=== PATIENT | male | born 1960 ===

== ENCOUNTER 2018-05-05 08:55 | Outpatient (CLI) | payer OTHER | END 2018-05-05 09:05 | disposition home or self-care (01) | LOC: LAB 08:55 | DX: R31.9 Hematuria, unspecified (principal) ==

== ENCOUNTER 2018-05-11 20:37 | Emergency (ER) | payer OTHER ==
[~2018-05-11] VITALS: Ht 170.2 cm; Wt 90.7 kg
[2018-05-11] MEDS ORDERED: TAMS0.4C PO (20:44)
[2018-05-11] MEDS ORDERED: VASOTEC10 MG (20:45)
[2018-05-11] MEDS ORDERED: FORTAMET1000 MG PO (20:45)
[2018-05-11] MEDS ORDERED: CRESTOR5 MG PO (20:45)
[2018-05-11] MEDS ORDERED: LANTUS SOL100 UNIT/1 (20:46)
== END 2018-05-11 22:38 | disposition home or self-care (01) ==
LOC: ER 20:37
DX: R31.0 Gross hematuria (principal)

== ENCOUNTER 2018-05-14 07:20 | Outpatient (CLI) | payer OTHER ==
[~2018-05-14 07:20] MED LIST: CRESTOR5 MG PO; FORTAMET1000 MG PO; LANTUS SOL100 UNIT/1; TAMS0.4C PO; VASOTEC10 MG
== END 2018-05-14 07:21 | disposition home or self-care (01) ==
LOC: SONOGRAMA 07:20
DX: E04.2 Nontoxic multinodular goiter (principal)

== ENCOUNTER 2018-05-18 07:00 | Outpatient (CLI) | payer OTHER | END 2018-05-18 07:11 | disposition home or self-care (01) | LOC: LAB 07:00 | DX: R58 Hemorrhage, not elsewhere classified (principal) ==

== ENCOUNTER 2018-05-19 07:59 | Outpatient (CLI) | payer OTHER | END 2018-05-19 08:26 | disposition home or self-care (01) | LOC: LAB 07:59 | DX: D69.6 Thrombocytopenia, unspecified (principal); N02.8 Recurrent and persistent hematuria with other morphologic changes; R31.0 Gross hematuria; D51.3 Other dietary vitamin B12 deficiency anemia; D51.1 Vitamin B12 deficiency anemia due to selective vitamin B12 malabsorption with proteinuria; E11.9 Type 2 diabetes mellitus without complications; D50.8 Other iron deficiency anemias; D51.8 Other vitamin B12 deficiency anemias; I10 Essential (primary) hypertension; R97.0 Elevated carcinoembryonic antigen [CEA]; R97.20 Elevated prostate specific antigen [PSA]; D51.0 Vitamin B12 deficiency anemia due to intrinsic factor deficiency; E03.8 Other specified hypothyroidism; E06.3 Autoimmune thyroiditis; N39.0 Urinary tract infection, site not specified ==

== ENCOUNTER 2018-06-02 08:51 | Outpatient (CLI) | payer OTHER | END 2018-06-02 09:59 | disposition home or self-care (01) | LOC: LAB 08:51 | DX: R31.0 Gross hematuria (principal) ==

== ENCOUNTER 2018-06-09 08:01 | Outpatient (CLI) | payer OTHER | END 2018-06-09 16:12 | disposition home or self-care (01) | LOC: LAB 08:01 | DX: R31.0 Gross hematuria (principal) ==

== ENCOUNTER 2018-06-23 07:16 | Outpatient (CLI) | payer OTHER | END 2018-06-23 07:20 | disposition home or self-care (01) | LOC: LAB 07:16 | DX: D69.6 Thrombocytopenia, unspecified (principal); R31.0 Gross hematuria; D51.3 Other dietary vitamin B12 deficiency anemia; D51.1 Vitamin B12 deficiency anemia due to selective vitamin B12 malabsorption with proteinuria; E11.9 Type 2 diabetes mellitus without complications; D50.8 Other iron deficiency anemias; D51.8 Other vitamin B12 deficiency anemias; I10 Essential (primary) hypertension; R97.0 Elevated carcinoembryonic antigen [CEA]; R97.8 Other abnormal tumor markers ==

== ENCOUNTER 2018-06-25 07:17 | Outpatient (CLI) | payer OTHER | END 2018-06-25 07:29 | disposition home or self-care (01) | LOC: TOM 07:17 | DX: R31.0 Gross hematuria (principal) ==

== ENCOUNTER 2018-08-13 06:36 | Outpatient (CLI) | payer OTHER | END 2018-08-13 09:48 | disposition home or self-care (01) | LOC: LAB 06:36 | DX: R80.8 Other proteinuria (principal); R31.9 Hematuria, unspecified; N18.2 Chronic kidney disease, stage 2 (mild); E11.69 Type 2 diabetes mellitus with other specified complication ==

== ENCOUNTER 2018-10-06 08:28 | Outpatient (CLI) | payer OTHER | END 2018-10-06 08:33 | disposition home or self-care (01) | LOC: LAB 08:28 | DX: N18.2 Chronic kidney disease, stage 2 (mild) (principal); I10 Essential (primary) hypertension; E11.21 Type 2 diabetes mellitus with diabetic nephropathy; R80.8 Other proteinuria ==

== ENCOUNTER 2021-08-30 08:21 | Outpatient (CLI) | payer OTHER | END 2021-08-30 08:24 | disposition home or self-care (01) | LOC: SONOGRAMA 08:21 | PROVIDERS: ATTEND Pathology Anatomic Pathology & Clinical Pathology | DX: E04.1 Nontoxic single thyroid nodule (principal) ==